=== PATIENT | female | born 1990 | race Native Hawaiian/Other Pacific Islander ===

== ENCOUNTER 2016-09-14 21:11 | Emergency (ER) | payer OTHER ==
[~2016-09-14] VITALS: Ht 167.6 cm; Wt 74.8 kg
[2016-09-14 22:07] LABS: PLATELET COUNT 356 K/uL (152-353)
[2016-09-14 22:20] LABS: POTASSIUM 3.7 mmol/L (3.6-5.2); SODIUM 136 mmol/L (136-145)
== END 2016-09-14 23:22 | disposition home or self-care (01) ==
LOC: ED 21:11
DX: M54.5 Low back pain (principal); G89.29 Other chronic pain; G62.9 Polyneuropathy, unspecified
CPT/HCPCS: 80053; 81000; 85027; 96372; 99283; J1885